=== PATIENT | female | born 1940 | race Hispanic/Latino ===

== ENCOUNTER 2021-10-10 16:48 | Emergency (ER) | payer MEDICARE ==
[~2021-10-10] VITALS: Ht 160 cm; Wt 63.5 kg
[2021-10-10 17:30] LABS: BASOPHILS % (AUTO) 0.2 % (0.0-5.0); EOSINOPHILS % (AUTO) 0.2 % (0.0-8.0); HEMATOCRIT 32.8 % (36-48); LYMPHOCYTES % (AUTO) 3.5 % (21.0-51.0); MEAN CORPUSCULAR HEMOGLOBIN 28.7 pg (27.0-33.0); MEAN CORPUSCULAR HGB CONC 32.6 g/dL (32.0-36.0); MEAN CORPUSCULAR VOLUME 87.9 fL (79-99); MONOCYTES % (AUTO) 11.3 % (3.0-13.0); NEUTROPHILS % (AUTO) 83.4 % (40.0-77.0); PLATELET COUNT (AUTO) 260 K/uL (130-400); RED BLOOD CELL COUNT(AUTO) 3.73 MIL/uL (4.00-5.50); RED CELL DISTRIBUTION WIDTH 14.4 % (11.0-15.5); WHITE BLOOD COUNT (AUTO) 13.9 K/uL (4.8-10.8)
[2021-10-10] MEDS ORDERED: ONDANSETRON 4MG INJ IVP ONE (17:30)
[2021-10-10] MEDS ORDERED: ACETAMINOPHEN 500 MG TABLET PO ONE (17:30)
[2021-10-10] MEDS ORDERED: 0.9%NACL 1000ML 1,000 ML IV SCH (17:30)
[2021-10-10] MEDS ORDERED: IBUPROFEN 600 MG TABLET PO ONE (17:30)
[2021-10-10 17:47] LABS: CARBON DIOXIDE 27 mmol/L (21-32); CHLORIDE 98 mmol/L (101-111); GLOMERULAR FILTR. RATE CALC 57 mL/min (>60); GLUCOSE,RANDOM 257 mg/dL (70-105); SODIUM SERUM 133 mmol/L (136-145); UREA NITROGEN, BLOOD 27 mg/dL (7-18)
[2021-10-10 17:57] LABS: ALANINE AMINOTRANSFERASE 24 U/L (12-78); ALBUMIN 2.9 g/dL (3.5-5.0); ASPARTATE AMINOTRANSFERASE 16 U/L (10-37); TOTAL PROTEIN, SERUM 6.8 g/dL (6.0-8.3)
[2021-10-10 18:11] LABS: APPEARANCE,URINE Cloudy (CLEAR); BILIRUBIN,URINE Negative (NEGATIVE); COLOR,URINE Yellow (YELLOW); GLUCOSE, URINE (UA) 250 mg/dL (NEGATIVE); KETONES,URINE 15 mg/dL (NEGATIVE); LEUKOCYTE ESTERASE ,URINE Moderate (NEGATIVE); NITRATE,URINE Negative (NEGATIVE); OCCULT BLOOD,URINE Small (NEGATIVE); PROTEIN,URINE POS 2+ mg/dL (NEGATIVE)
[2021-10-10 18:39] LABS: BACTERIA,URINE Moderate /HPF (None Seen); SQUAMOUS EPITHELIAL CELL,UR Few /HPF (0-2)
[2021-10-10 18:40] LABS: MUCUS,URINE Rare LPF (None Seen); TRANSITIONAL EPI CELLS,URINE Rare /HPF (None Seen)
[2021-10-10] MEDS ORDERED: PHEN-847 PO (18:45)
[2021-10-10] MEDS ORDERED: CEPH500B PO (18:45)
[2021-10-10] MEDS ORDERED: ACET-2247 PO (18:45)
[2021-10-10] MEDS ORDERED: CEFTRIAXONE 1G VIAL IVP ONE (19:00)
[2021-10-10 19:30] VITALS: BP 120/51
== END 2021-10-10 19:34 | disposition home or self-care (01) ==
LOC: EDH 16:48
DX: N39.0 Urinary tract infection, site not specified (principal); E86.0 Dehydration; E11.65 Type 2 diabetes mellitus with hyperglycemia; D64.9 Anemia, unspecified; Z20.822 Contact with and (suspected) exposure to COVID-19; I10 Essential (primary) hypertension; E78.00 Pure hypercholesterolemia, unspecified; Z79.1 Long term (current) use of non-steroidal anti-inflammatories (NSAID)
CPT/HCPCS: 99284; 96374; 71045; 96361; 87635; 96375; 84484; 80053; 85025; 87040 ×2; 87077; 87088; 87186; 87804 ×2; 83605; 86140; 81001; 36415; C9803; J7030; J0696; J2405